=== PATIENT | male | born 1965 | race Caucasian/White ===

== ENCOUNTER 2017-04-23 09:52 | Day surgery (SDC) | payer BC, OTHER ==
[~2017-04-23 09:52] MED LIST: Lactated Ringers 1,000 ML IV SCH
[2017-04-23] MEDS ORDERED: fentaNYL 100 MCG/2 ML SDV ONE (11:25)
[2017-04-23] MEDS ORDERED: Propofol 200 MG/20 ML SDV ONE ×2 (11:25→12:05)
--- NOTE | 2017-04-23 13:14 | OR ---
PREOPERATIVE DIAGNOSIS: Screening colonoscopy. POSTOPERATIVE DIAGNOSIS: Screening colonoscopy. PROCEDURE PERFORMED: Screening colonoscopy. INDICATION: The patient is a 51-year-old male who presents for his 1st screening colonoscopy at this time. PROCEDURE IN DETAIL: Procedure in detail is done in the endoscopy suite. Sedation was given per Anesthesia. He was placed in left lateral position. First, a rectal exam was done, it was normal. Scope was introduced into the rectum, slowly advanced through the rectum, sigmoid, descending, transverse, and ascending colon until the cecum was reached. Upon reaching the cecum, the scope was slowly withdrawn looking at all mucosal surfaces on the way out. No mucosal abnormalities, lesions, or polyps were noted. FINAL DIAGNOSIS: Normal colonoscopy. BKD: 04/23/2017 12:22:03 MODL: 04/23/2017 13:02:45 /[id number]
== END 2017-04-23 13:25 | disposition home or self-care (01) ==
LOC: VM.SDS 09:52
PROVIDERS: ATTEND Surgery
DX: Z12.11 Encounter for screening for malignant neoplasm of colon (principal); I10 Essential (primary) hypertension; Z79.899 Other long term (current) drug therapy
CPT/HCPCS: 45378; J2704; J3010; J7120